=== PATIENT | female | born 1980 | race Caucasian/White ===

== ENCOUNTER 2019-03-24 06:44 | Day surgery (SDC) | payer BC ==
[2019-03-24] MEDS ORDERED: Dexmedetomidine 200 MCG/2 ML SDV IV ONE (06:45)
[2019-03-24] MEDS ORDERED: Propofol 200 MG/20 ML SDV IV ONE (06:45)
[2019-03-24] MEDS ORDERED: Midazolam 1 MG/ML 2 ML SDV IV ONE (06:45)
[2019-03-24] MEDS ORDERED: Ondansetron 4 MG/2 ML SDV IVPUSH ONE (06:45)
[2019-03-24] MEDS ORDERED: Lactated Ringers 1,000 ML IV SCH (06:45)
[2019-03-24] MEDS ORDERED: Ketorolac 30 MG/ML SDV IVPUSH ONE (06:45)
[2019-03-24] MEDS ORDERED: Sodium Chloride 0.9% 10 ML Syringe FLUSH PRN (06:45)
[2019-03-24] MEDS ORDERED: Lidocaine 1% with EPINEPHrine 1:100,000 20 ML MDV INJECT ONE (07:45)
[2019-03-24] MEDS ORDERED: Bupivacaine 0.5% 30 ML SDV INJECT ONE (07:45)
--- NOTE | 2019-03-24 08:15 | PCM.HPR ---
H & P Addendum review - H & P Addendum Review Date of Original H & P: 03/19/19 Date Reviewed: 03/24/19 Time Reviewed: 08:00 Patient was Examined: No Changes
--- NOTE | 2019-03-24 08:41 | PCM.OPNOTE ---
- General Post-Op/Procedure Note Date of Surgery/Procedure: 03/24/19 Operative Procedure(s): L Lateral Internal Sphincterotomy Pre Op Diagnosis: Chronic Anal fissure Post-Op Diagnosis: Same Anesthesia Technique: Local, MAC Primary Surgeon: Yasmani Alvarado Anesthesia Provider: Isamar HILL in mLs: 2 Complications: None Condition: Good
[2019-03-24 09:57] VITALS: BP 98/64; PULSE 64
--- NOTE | 2019-03-24 11:59 | OR ---
DATE OF OPERATION: 03/24/2019 SURGEON: Yasmani Alvarado MD PREOPERATIVE DIAGNOSIS: Chronic anal fissure. POSTOPERATIVE DIAGNOSIS: Chronic anal fissure. PROCEDURE: Left lateral internal sphincterotomy. ANESTHESIA: Will be local, MAC. PROCEDURE IN DETAIL: The patient was brought to the procedure room, where a time-out was performed. She was placed in the prone jackknife position. The buttocks were sprayed with benzoin and retracted with tape. Betadine prep was performed. The area was prepped and draped sterilely. A 50:50 mixture of 1% lidocaine with epinephrine and 0.25% Marcaine was used for local anesthesia. Anoscopic exam does confirm chronic anal fissure in the left posterior midline. A small incision was made on the left lateral side, and the internal sphincter muscle dissected. The constricting band portion was sharply transected. Finger palpation revealed this to be relaxed. The pressure was held for a few minutes. Minimal oozing occurred. Incision was closed with interrupted 4-0 Vicryl. A bulky sterile pressure dressing was applied. The patient tolerated the procedure well and returned to recovery in stable condition. ESTIMATED BLOOD LOSS: 2 mL. /[id number] KRISTIN/ЕКАТЕРИНА
== END 2019-03-24 10:08 | disposition home or self-care (01) ==
LOC: FB.SDS 06:44
PROVIDERS: ATTEND Surgery
DX: K60.1 Chronic anal fissure (principal); E03.9 Hypothyroidism, unspecified; K64.4 Residual hemorrhoidal skin tags; F41.9 Anxiety disorder, unspecified; Z79.899 Other long term (current) drug therapy
CPT/HCPCS: 81025; J1885; J2250; J2405; J2704; J3490; J7120

== ENCOUNTER 2019-11-11 22:37 | Observation (INO) | payer BC ==
[2019-11-11] MEDS ORDERED: Sodium Chloride 0.9% 10 ML Syringe FLUSH PRN (22:48)
[2019-11-11] MEDS ORDERED: Sodium Chloride 0.9% 1,000 ML IV SCH (23:00)
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
[2019-11-11 23:13] LABS: ACETAMINOPHEN < 2 ug/mL (<2)
[2019-11-11] MEDS ORDERED: Ondansetron 4 MG/2 ML SDV IV PRN (23:14)
[2019-11-12] MEDS: Sodium Chloride 0.9% 1,000 ML IV SCH ×2 (00:16→05:33)
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
[2019-11-12] MEDS ORDERED: Levothyroxine 75 MCG Tab PO SCH (08:30)
[2019-11-12] MEDS ORDERED: CLINDAMYCIN PHOSPHATE TOP SCH (09:00)
[2019-11-12] MEDS ORDERED: buPROPion 150 MG Tab.ER PO SCH (09:00)
[2019-11-12] MEDS ORDERED: Ibuprofen 600 MG Tab PO PRN (09:12)
[2019-11-12] MEDS ORDERED: busPIRone 10 MG Tab PO SCH (10:00)
[2019-11-12 11:45] VITALS: BP 108/60; PULSE 103
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
[2019-11-12] MEDS ORDERED: ClonazePAM 0.5 MG Tab PO SCH (21:00)
[2019-11-12] MEDS ORDERED: PARoxetine 20 MG Tab PO SCH (21:00)
== END 2019-11-12 12:50 | disposition home or self-care (01) ==
LOC: FB.ED 22:37 → FB.ICU 23:20
PROVIDERS: ADMIT Emergency Medicine; ATTEND Family Medicine
DX: T43.212A Poisoning by selective serotonin and norepinephrine reuptake inhibitors, intentional self-harm, initial encounter (principal); F41.9 Anxiety disorder, unspecified; F43.29 Adjustment disorder with other symptoms; F43.10 Post-traumatic stress disorder, unspecified; E03.9 Hypothyroidism, unspecified; Z79.890 Hormone replacement therapy; Z79.899 Other long term (current) drug therapy
CPT/HCPCS: 36415; 80053; 80305-QW; 80307; 81001; 81025; 85025; 93005; 96360; 96361; 99285-25; A9270-GY; G0378; J7030

== ENCOUNTER 2024-08-25 11:14 | Emergency (ER) | payer BC, OTHER ==
[2024-08-25 11:19] VITALS: BP 150/99; PULSE 140
[2024-08-25] MEDS ORDERED: Sodium Chloride 0.9% 10 ML Syringe FLUSH PRN (12:05)
[2024-08-25] MEDS: Sodium Chloride 0.9% 1,000 ML IV ONE (12:29)
[2024-08-25 12:33] LABS: BASOPHILS PERCENT AUTO 0.6 % (0.2-1.5); EOSINOPHILS ABSOLUTE AUTO 0.1 x10-3/uL (0.0-0.8); EOSINOPHILS PERCENT AUTO 1.5 % (0.6-8.1); HEMATOCRIT 40.6 % (34.2-48.2); HEMOGLOBIN 14.1 g/dL (11.4-15.5); LYMPHOCYTES ABSOLUTE AUTO 0.8 x10-3/uL (1.0-4.4); LYMPHOCYTES PERCENT AUTO 14.2 % (18.4-52.1); MEAN CORPUSCULAR HEMOGLOBIN 29.9 pg (23.9-33.9); MEAN CORPUSCULAR HGB CONC 34.8 g/dL (31.9-34.8); MEAN CORPUSCULAR VOLUME 85.8 fL (76.7-100.5); MEAN PLATELET VOLUME 8.5 fL (7.1-12.4); MONOCYTES ABSOLUTE AUTO 0.7 x10-3/uL (0.3-1.0); MONOCYTES PERCENT AUTO 11.6 % (4.4-15.7); NEUTROPHILS ABSOLUTE AUTO 4.1 x10-3/uL (1.5-6.3); NEUTROPHILS PERCENT AUTO 72.1 % (30.8-76.2); PLATELET COUNT,PLT 238 x10(3)uL (151-488); RED BLOOD CELL COUNT 4.73 x10(6)uL (3.60-5.20); RED CELL DISTRIBUTION WIDTH 12.4 % (12.3-16.5); WHITE BLOOD CELL COUNT,WBC 5.7 x10-3/uL (3.0-10.3)
[2024-08-25 12:37] LABS: BLOOD UREA NITROGEN,BUN 8 mg/dL (7-18); BUN/CREATININE RATIO 7.3 (9-20); CALCIUM 8.9 mg/dL (8.6-10.2); CARBON DIOXIDE,CO2 24 mmol/L (21-32); CHLORIDE,CL 100 mmol/L (100-110); CREATININE 1.1 mg/dL (0.55-1.02); EST CRCL DRUG DOSING (CG) 59.95 mL/min; ESTIMATED GFR 64 mL/min (>60); GLUCOSE RANDOM 91 mg/dL (80-116); POTASSIUM,K 3.4 mmol/L (3.5-5.3); SODIUM,NA 136 mmol/L (135-145)
[2024-08-25 12:42] LABS: A/G RATIO 1.3; ALANINE AMINOTRANSFERASE,ALT 35 U/L (12-36); ALBUMIN 4.2 g/dL (3.5-5.2); ALKALINE PHOSPHATASE 82 IU/L (56-112); ASPARTATE AMNIOTRANSFERASE,AST 31 IU/L (5-25); BILIRUBIN TOTAL 0.5 mg/dL (0.1-1.3); MAGNESIUM 1.9 mg/dL (1.8-2.5); PROTEIN TOTAL,TP 7.4 g/dL (6.0-8.0)
[2024-08-25 12:48] LABS: C-REACTIVE PROTEIN < 0.50 mg/dL (<0.50)
[2024-08-25 13:14] LABS: BILIRUBIN,URINE NEGATIVE (NEGATIVE); GLUCOSE,URINE NORMAL (NORMAL); KETONES,URINE 50 mg/dL (NEGATIVE); LEUKOCYTE ESTERASE,URINE NEGATIVE (NEGATIVE); NITRITE,URINE NEGATIVE (NEGATIVE); OCCULT BLOOD,URINE NEGATIVE (NEGATIVE); PROTEIN,URINE NEGATIVE (NEGATIVE); UROBILINOGEN,URINE NORMAL (NEGATIVE)
[2024-08-25 13:29] LABS: APPEARANCE,URINE CLEAR (CLEAR); COLOR,URINE YELLOW (YELLOW)
== END 2024-08-25 14:30 | disposition home or self-care (01) ==
LOC: FB.ED 11:14
DX: F41.9 Anxiety disorder, unspecified (principal); R00.0 Tachycardia, unspecified; E86.0 Dehydration; E03.9 Hypothyroidism, unspecified; Z79.890 Hormone replacement therapy; Z79.899 Other long term (current) drug therapy; Z87.891 Personal history of nicotine dependence
CPT/HCPCS: 71045; 80053; 81003; 81025; 83735; 84443; 84484; 85025; 85379; 86140; 93005; 96360; 99285; J7030; 93010; 99284